=== PATIENT | male | born 1965 | race Two or more races ===

== ENCOUNTER 2017-06-27 05:03 | Emergency (ER) | payer OTHER ==
[2017-06-27 05:15] VITALS: BMI 29.2
[2017-06-27 05:32] LABS: BASO % 1.1 % (0-2.0); EOS % 3.9 % (0-4.5); HEMATOCRIT 39.8 % (35.4-49); HEMOGLOBIN 13.3 GM/dL (11.7-16.9); LYMPH % 36.8 % (8-40); MCH 30.3 pg (25.7-33.7); MCHC 33.5 g/dl (32.0-35.9); MEAN CELL VOLUME 90.4 fl (80-96); MEAN PLT VOLUME 8.8 fl (7.5-11.1); MONO % 10.1 % (3.8-10.2); NEUT % 48.1 % (42.8-82.8); PLATELET COUNT 199 K/MM3 (134-434); RBC 4.41 M/mm3 (4.00-5.60); RDW 13.1 % (11.9-15.9); WHITE BLOOD COUNT 7.3 K/mm3 (4.0-10.0)
--- NOTE | 2017-06-27 05:41 | PDOC ---
History of Present Illness <Wilner Brooks - Last Filed: 06/27/17 06:02> - General History Source: Patient Exam Limitations: No Limitations - History of Present Illness Initial Comments: 06/27/17 07:11 Patient is a 52 year old male with a significant past medical history of gallstones, kidney stones who presents to the ED with complaints of right upper quadrant abdominal pain that began 1 month ago. Patient reports experiencing sudden onset of right upper quadrant pain that began one month ago that increased in intensity this morning at 1am. He reports experiencing intermittent nausea and gas secondary to RUQ pain. Patient reports taking 3 advil this morning at 1am for RUQ pain with no relief. He reports RUQ pain has been a dull chronic pain at baseline but increased in intensity this morning enough to wake him from sleep prompting him to come into the ED for further evaluation. Pt notes the pain seems to be worse when he sits down, improved with standing. No recent heavy lifting or injuries. Denies chest pain, Sob. Denies fevers, chills. Denies nausea, vomiting. Denies contact with sick individuals, out of state traveling. Denies change in appetite , diarrhea, constipation, dysuria, hematuria. Denies any other symptoms. Allergies: None Social history: Current smoker. No alcohol. No illicit drugs. Surgical history: Appendectomy. PMD: Dr. Childs <Len Lopez - Last Filed: 06/27/17 07:12> - General Chief Complaint: Pain, Acute Stated Complaint: PAIN UNDER RIB AREA Time Seen by Provider: 06/27/17 05:14 Past History - Past Medical History COPD: No Other medical history: renal stones - Surgical History Cholecystectomy: Yes - Suicide/Smoking/Psychosocial Hx Smoking History: Current every day smoker Information on smoking cessation initiated: No <Wilner Brooks - Last Filed: 06/27/17 06:02> <Len Lopez - Last Filed: 06/27/17 07:12> - Past Medical History Allergies/Adverse Reactions: Allergies Allergy/AdvReac Type Severity Reaction Status Date / Time No Known Allergies Allergy Verified 01/09/15 17:16 Home Medications: Ambulatory Orders Ibuprofen [Advil -] 800 mg PO TID PRN 06/27/17 Review of Systems - Review of Systems Able to Perform ROS?: Yes Comments:: 06/27/17 07:11 CONSTITUTIONAL: No reported: Fever, Chills, Diaphoresis, Generalized Weakness, Malaise, Loss of Appetite HEENT: No reported: Rhinorrhea, Nasal Congestion, Throat Pain, Throat Swelling, Difficulty Swallowing, Mouth Swelling, Ear Pain, Eye Pain, Visual Changes CARDIOVASCULAR: No reported: Chest Pain, Syncope, Palpitations, Irregular Heart Rate, Lightheadedness, Peripheral Edema RESPIRATORY: No reported: Cough, Shortness of Breath, SOB with Exertion, Orthopnea, Wheezing , Stridor, Hemoptysis GASTROINTESTINAL: +Right upper quadrant pain. +Nausea. No reported: Abdominal Distension, Vomiting, Diarrhea, Constipation, Melena, Hematochezia GENITOURINARY: No reported: Dysuria, Frequency, Urgency, Hesitancy, Flank Pain, Genital Pain MUSCULOSKELETAL: No reported: Myalgia, Arthralgia, Joint Swelling, Back pain, Neck Pain SKIN: No reported: Rash, Itching, Pallor HEMATOLOGIC/IMMUNOLOGIC: No reported: Easy Bleeding, Easy Bruising, Lymphadenopathy, Frequent infections ENDOCRINE: No reported: Unexplained Weight Gain, Unexplained Weight Loss, Heat Intolerance , Cold Intolerance NEUROLOGIC: No reported: Headache, Focal Weakness, Paresthesias, Vertigo, Lightheadedness, Unsteady Gait, Seizure, Mental Status Changes, Incontinence PSYCHIATRIC: No reported: Anxiety, Depression <Len Lopez - Last Filed: 06/27/17 07:12> *Physical Exam - Vital Signs Last Vital Signs Temp Pulse Resp BP Pulse Ox 71 26 H 148/99 99 06/27/17 05:13 06/27/17 05:13 06/27/17 05:13 06/27/17 05:13 <Wilner Brooks - Last Filed: 06/27/17 06:02> - Vital Signs Last Vital Signs Temp Pulse Resp BP Pulse Ox 71 26 H 148/99 99 06/27/17 05:13 06/27/17 05:13 06/27/17 05:13 06/27/17 05:13 - Physical Exam Comments: 06/27/17 07:12 GENERAL: +Obese. The patient is awake, alert, and fully oriented, Nontoxic - in no acute distress. HEAD: Normocephalic, atraumatic. EYES: extraocular movements intact, sclera anicteric, conjunctiva clear. ENT: Normal voice, Moist mucous membranes. NECK: Normal range of motion, No JVD LUNGS: Breath sounds equal, clear to auscultation bilaterally. No wheezes, no rhonchi, no rales. HEART: Regular rate and rhythm, normal S1 and S2 without murmur, rub or gallop. ABDOMEN: +mild RUQ tenderness. no tenderness at mcburneys Soft, normoactive bowel sounds. No guarding, no rebound. No masses. No CVA tenderness EXTREMITIES: Normal range of motion, no edema. No clubbing or cyanosis. No cords , erythema, or tenderness. NEUROLOGICAL: No facial asymmetry, Normal speech, normal gait. PSYCH: Normal mood, normal affect. SKIN: Warm, Dry, normal turgor. <Len Lopez - Last Filed: 06/27/17 07:12> ED Treatment Course - LABORATORY CBC & Chemistry Diagram: 06/27/17 05:23 06/27/17 05:23 - ADDITIONAL ORDERS Additional order review: 06/27/17 05:23 RBC 4.41 MCV 90.4 MCHC 33.5 RDW 13.1 MPV 8.8 Neutrophils % 48.1 Lymphocytes % 36.8 Monocytes % 10.1 Eosinophils % 3.9 Basophils % 1.1 <CeciliaWilner - Last Filed: 06/27/17 06:02> - LABORATORY CBC & Chemistry Diagram: 06/27/17 05:23 06/27/17 05:23 - ADDITIONAL ORDERS Additional order review: Laboratory Results 06/27/17 06/27/17 05:23 05:23 PT with INR 12.10 H INR 1.07 Sodium 140 Potassium 4.0 Chloride 109 H Carbon Dioxide 24 Anion Gap 7 L BUN 18 Creatinine 0.8 Creat Clearance w eGFR > 60 Random Glucose 136 H Calcium 8.3 L Total Bilirubin 0.2 AST 19 ALT 35 Alkaline Phosphatase 52 Total Protein 6.7 Albumin 3.3 L Lipase 120 06/27/17 05:23 RBC 4.41 MCV 90.4 MCHC 33.5 RDW 13.1 MPV 8.8 Neutrophils % 48.1 Lymphocytes % 36.8 Monocytes % 10.1 Eosinophils % 3.9 Basophils % 1.1 - Medications Given in the ED: ED Medications Discontinued Medications Generic Name Dose Route Start Last Admin Trade Name Freq PRN Reason Stop Dose Admin Al Hydroxide/Mg Hydroxide 30 ml 06/27/17 06:03 06/27/17 06:16 Mylanta Suspension - PO 06/27/17 06:04 30 ml ONCE ONE Administration Famotidine/Sodium Chloride 20 50 mls @ 100 mls/hr 06/27/17 06:03 06/27/17 06: 15 mg/ Miscellaneous IVPB 06/27/17 06:32 100 mls/hr ONCE ONE Administration Ketorolac Tromethamine 30 mg 06/27/17 06:01 06/27/17 06:15 Toradol Injection - IVPUSH 06/27/17 06:02 30 mg ONCE ONE Administration <Len Lopez - Last Filed: 06/27/17 07:12> Medical Decision Making - Medical Decision Making 06/27/17 05:39 52y M with no pmhx presents with RUQ pain for 1 month, worsened tonight 9/10, sharp, nonradiating, worse with sitting/laying down, better with standing. + nausea, +passing gas, Took advil with mild improvement, but pain recurred later. no assocated f/c, cp, worsening on exertion, numbness/tingling/weakness, vomiting, not worse with food intake hx of gallstones/kidney stones, gastitis, msk, will give tolradol, pepcid/maalox will obtain GB US <Wilner Brooks - Last Filed: 06/27/17 06:02> *DC/Admit/Observation/Transfer - Attestations Scribe Attestion: 06/27/17 07:12 Documentation prepared by Len Lopez, acting as medical office coordinator for Wilner Brooks MD, /DO. <Len Lopez - Last Filed: 06/27/17 07:12>
[2017-06-27 05:43] LABS: INR 1.07 (0.82-1.09); PROTHROMBIN TIME (PATIENT) 12.1 SEC (9.98-11.88)
[2017-06-27 05:54] LABS: ALBUMIN 3.3 g/dl (3.4-5.0); ALK PHOS 52 U/L (45-117); ANION GAP 7 (8-16); BILIRUBIN,TOTAL 0.2 mg/dL (0.2-1.0); BLOOD UREA NITROGEN 18 mg/dL (7-18); CALCIUM 8.3 mg/dL (8.5-10.1); CHLORIDE 109 mmol/L (98-107); CO2 24 mmol/L (21-32); CREATININE 0.8 mg/dL (0.7-1.3); GLUCOSE,RANDOM 136 mg/dL (74-106); LIPASE 120 U/L (73-393); SGOT/AST 19 U/L (15-37); SGPT/ALT 35 U/L (12-78); SODIUM 140 mmol/L (136-145); TOT PROT 6.7 g/dl (6.4-8.2)
[2017-06-27] MEDS ORDERED: KETOROLAC TROMETHAMINE 30 MG/1 ML VIAL IVPUSH ONE (06:01)
[2017-06-27] MEDS ORDERED: MAG HYDROX/AL HYDROX/SIMETH 355 ML ORAL.SUSP PO ONE (06:03)
[2017-06-27] MEDS ORDERED: FAMOTIDINE 20 MG/50 ML IVPB 20 MG in PREMIX 50 IVPB ONE (06:03)
[2017-06-27] MEDS ORDERED: KETOROLAC TROMETHAMINE 30 MG/1 ML VIAL ONE (06:11)
[2017-06-27] MEDS ORDERED: FAMOTIDINE 20 MG/50 ML IVPB 20 MG/50 ML MG IVPB ONE (06:11)
[2017-06-27 09:33] LABS: URINE APPEARANCE CLEAR; URINE BILIRUBIN NEGATIVE (NEGATIVE); URINE BLOOD NEGATIVE (NEGATIVE); URINE COLOR YELLOW; URINE GLUCOSE (UA) NEGATIVE (NEGATIVE); URINE KETONE NEGATIVE (NEGATIVE); URINE LEUK ESTERASE NEGATIVE (NEGATIVE); URINE NITRITE NEGATIVE (NEGATIVE); URINE UROBILINOGEN NEGATIVE mg/dL (0.2-1.0)
[2017-06-27 09:35] LABS: URINE PROTEIN 1+ (NEGATIVE)
[2017-06-27 10:10] LABS: URINE HYALINE CAST 1 /lpf; URINE MUCUS MANY
--- NOTE | 2017-06-27 11:46 | CONSULT ---
Consult Consult Specialty:: general surgery Referred by:: rianna - ED Reason for Consultation:: biliary colic - History of Present Illness Chief Complaint: RUQ pain History of Present Illness: 52yo male no significant PMH presented with right upper abdominal pain. Pain is focal to right upper quadrant pain, sudden in onset at 1 am. he has been having intermittent dull achy pains that began one month ago. He reports experiencing intermittent nausea and gas secondary to RUQ pain. Patient reports taking 3 advil this morning at 1am for RUQ pain with no relief. He reports RUQ pain has been a dull chronic pain at baseline but increased in intensity this morning enough to wake him from sleep prompting him to come into the ED for further evaluation. He has had had previous episodes of biliary colic and maybe pancreatitis. The pain started after a meal of fried pork skin and rice. He diet is high in saturated fat. He denies fever and chills. he has not been jaundiced. Previous abdominal surgery was an appendectomy a few years ago at [facility], [place]. - History Source History Provided By: Patient Limitations to Obtaining History: No Limitations - Past Medical History Renal/: Yes: Renal Calculi - Past Surgical History Past Surgical History: Yes: Appendectomy - Alcohol/Substance Use Hx Alcohol Use: Yes (socially ) - Smoking History Smoking history: Current every day smoker - Social History ADL: Independent History of Recent Travel: No Home Medications - Allergies Allergies/Adverse Reactions: Allergies Allergy/AdvReac Type Severity Reaction Status Date / Time No Known Allergies Allergy Verified 01/09/15 17:16 - Home Medications Home Medications: Ambulatory Orders Naproxen 500 mg PO BID PRN #10 tablet 06/27/17 Review of Systems - Review of Systems Constitutional: denies: Chills, Fever Eyes: denies: Blurred Vision, Recent Change in Vision HENT: denies: Difficult Swallowing, Throat Pain Neck: denies: Pain on Movement, Swollen Glands Cardiovascular: denies: Chest Pain, Palpitations Respiratory: denies: Cough, SOB, SOB on Exertion Gastrointestinal: denies: Abdominal Pain, Constipation, Diarrhea Genitourinary: reports: Flank Pain. denies: Discharge, Dysuria Musculoskeletal: denies: Back Pain, Joint Swelling Integumentary: denies: Lesions, Rash Neurological: denies: Syncope, Tremors Endocrine: denies: Unexplained Weight Gain, Unexplained Weight Loss Hematology/Lymphatic: denies: Easily Bruised, Excessive Bleeding Psychiatric: denies: Anxiety, Depression Physical Exam Vital Signs: Vital Signs Temperature 98 F 06/27/17 07:58 Pulse Rate 60 06/27/17 07:58 Respiratory Rate 18 06/27/17 07:58 Blood Pressure 114/62 06/27/17 07:58 O2 Sat by Pulse Oximetry (%) 99 06/27/17 07:58 Vital Signs Period Temp Pulse Resp BP Sys/Coughlin Pulse Ox Last 24 Hr 98 F 60-71 18-26 114-148/62-99 99-99 Constitutional: Yes: Well Nourished, No Distress, Calm Eyes: Yes: Conjunctiva Clear, EOM Intact HENT: Yes: Atraumatic, Normocephalic Neck: Yes: Supple, Trachea Midline Cardiovascular: Yes: Regular Rate and Rhythm, S1, S2. No: Murmur Respiratory: Yes: Regular, CTA Bilaterally Gastrointestinal: Yes: Normal Bowel Sounds, Soft, Tenderness (murphys sign negative, mild discomfort on deep paplation, no rebound or guarding). No: Hepatomegaly, Tenderness, Rebound, Vomiting Renal/: No: CVA Tenderness - Left, CVA Tenderness - Right Extremities: No: Cool, Cyanosis Edema: No Wound/Incision: Yes: Clean/Dry, Well Approximated Neurological: Yes: Alert, Oriented Psychiatric: Yes: Alert, Oriented Labs: CBC,CMP WBC 7.3 K/mm3 (4.0-10.0) 06/27/17 05:23 RBC 4.41 M/mm3 (4.00-5.60) 06/27/17 05:23 Hgb 13.3 GM/dL (11.7-16.9) 06/27/17 05:23 Hct 39.8 % (35.4-49) 06/27/17 05:23 MCV 90.4 fl (80-96) 06/27/17 05:23 MCH 30.3 pg (25.7-33.7) 06/27/17 05:23 MCHC 33.5 g/dl (32.0-35.9) 06/27/17 05:23 RDW 13.1 % (11.9-15.9) 06/27/17 05:23 Plt Count 199 K/MM3 (134-434) 06/27/17 05:23 MPV 8.8 fl (7.5-11.1) 06/27/17 05:23 Neutrophils % 48.1 % (42.8-82.8) 06/27/17 05:23 Lymphocytes % 36.8 % (8-40) 06/27/17 05:23 Monocytes % 10.1 % (3.8-10.2) 06/27/17 05:23 Eosinophils % 3.9 % (0-4.5) 06/27/17 05:23 Basophils % 1.1 % (0-2.0) 06/27/17 05:23 Sodium 140 mmol/L (136-145) 06/27/17 05:23 Potassium 4.0 mmol/L (3.5-5.1) 06/27/17 05:23 Chloride 109 mmol/L (98-107) H 06/27/17 05:23 Carbon Dioxide 24 mmol/L (21-32) 06/27/17 05:23 Anion Gap 7 (8-16) L 06/27/17 05:23 BUN 18 mg/dL (7-18) 06/27/17 05:23 Creatinine 0.8 mg/dL (0.7-1.3) 06/27/17 05:23 Creat Clearance w eGFR > 60 (>60) 06/27/17 05:23 Random Glucose 136 mg/dL (74-106) H 06/27/17 05:23 Calcium 8.3 mg/dL (8.5-10.1) L 06/27/17 05:23 Total Bilirubin 0.2 mg/dL (0.2-1.0) 06/27/17 05:23 AST 19 U/L (15-37) 06/27/17 05:23 ALT 35 U/L (12-78) 06/27/17 05:23 Alkaline Phosphatase 52 U/L (45-117) 06/27/17 05:23 Total Protein 6.7 g/dl (6.4-8.2) 06/27/17 05:23 Albumin 3.3 g/dl (3.4-5.0) L 06/27/17 05:23 Lipase 120 U/L (73-393) 06/27/17 05:23 Imaging - Results Ultrasound: Report Reviewed, Image Reviewed (equivocal for cholecystitis, no stones, no thickening no CBD dilation) Problem List - Problems (1) Sludge in gallbladder Assessment/Plan: 52 yo female PMH nephrolitiasis, biliary colic s/p laparoscopic appendectomy presents with an acute attack of colic with GB slidge after a meal of fried pork. IVF hydration Adequate analgesia Counseled to refrain from consuming fatty foods until clinic follow-up appointment Encourged to return if pain returns or worsens Thank you for the opportunity to participate in the care of this patient. Code(s): K82.8 - OTHER SPECIFIED DISEASES OF GALLBLADDER (2) Biliary colic symptom Code(s): K80.50 - CALCULUS OF BILE DUCT W/O CHOLANGITIS OR CHOLECYST W/O OBST (3) Renal calculi Code(s): N20.0 - CALCULUS OF KIDNEY (4) Abdominal pain, right lower quadrant Code(s): R10.31 - RIGHT LOWER QUADRANT PAIN
--- NOTE | 2017-06-27 11:55 | PDOC ---
*Physical Exam - Vital Signs Last Vital Signs Temp Pulse Resp BP Pulse Ox 98 F 60 18 114/62 99 06/27/17 07:58 06/27/17 07:58 06/27/17 07:58 06/27/17 07:58 06/27/17 07:58 <Tara Doss - Last Filed: 06/27/17 11:57> - Vital Signs Last Vital Signs Temp Pulse Resp BP Pulse Ox 98 F 60 18 114/62 99 06/27/17 07:58 06/27/17 07:58 06/27/17 07:58 06/27/17 07:58 06/27/17 07:58 <Migdalia Vizcarra - Last Filed: 06/27/17 12:36> ED Treatment Course - LABORATORY CBC & Chemistry Diagram: 06/27/17 05:23 06/27/17 05:23 - ADDITIONAL ORDERS Additional order review: Laboratory Results 06/27/17 06/27/17 06/27/17 08:58 05:23 05:23 PT with INR 12.10 H INR 1.07 Sodium 140 Potassium 4.0 Chloride 109 H Carbon Dioxide 24 Anion Gap 7 L BUN 18 Creatinine 0.8 Creat Clearance w eGFR > 60 Random Glucose 136 H Calcium 8.3 L Total Bilirubin 0.2 AST 19 ALT 35 Alkaline Phosphatase 52 Total Protein 6.7 Albumin 3.3 L Lipase 120 Urine Color Yellow Urine Appearance Clear Urine pH 5.0 Ur Specific [place] 1.036 H Urine Protein 1+ H Urine Glucose (UA) Negative Urine Ketones Negative Urine Blood Negative Urine Nitrite Negative Urine Bilirubin Negative Urine Urobilinogen Negative Ur Leukocyte Esterase Negative Urine WBC (Auto) <1 Urine RBC (Auto) <1 Hyaline Casts 1 Urine Mucus Many 06/27/17 05:23 RBC 4.41 MCV 90.4 MCHC 33.5 RDW 13.1 MPV 8.8 Neutrophils % 48.1 Lymphocytes % 36.8 Monocytes % 10.1 Eosinophils % 3.9 Basophils % 1.1 - RADIOLOGY Radiograph Interpretation: EXAM#: TYPE/EXAM: RESULT: [id number] US/GALLBLADDER US Indication: Right upper quadrant pain. Technique: Real-time grayscale and color Doppler sonogram of the right upper quadrant performed by the technologist. Images are submitted for review. Comparison: None available. Findings: Technologist reports the patient was unable to maintain breath-hold, somewhat limiting evaluation. The liver measures 15.5 cm in length. Hepatic parenchyma is diffusely hyperechoic, consistent with steatosis. Please note that echogenic hepatic parenchyma decreases sonographic sensitivity in detecting hepatic mass lesions. The gallbladder is not hydropic. There is sludge layering dependently in the gallbladder with no evidence of cholelithiasis or pericholecystic fluid. The gallbladder wall is mildly prominent, measuring 4 mm in thickness. The technologist reports a positive sonographic Guaman's sign. There is no evidence of intrahepatic or extrahepatic biliary ductal dilatation. The proximal common bile duct measures 5 mm in diameter. Distally, the common bile duct is obscured by bowel gas. The pancreas is not well visualized, and cannot be adequately assessed. The right kidney is normal in size measuring 10.6 cm in length with normal cortical echotexture and no hydronephrosis. No free fluid identified in the right upper quadrant of the abdomen. The portal vein is patent, where imaged. The aorta and IVC are not well visualized. Impression: Gallbladder sludge with no evidence of cholelithiasis. Very mild gallbladder wall thickening and positive sonographic Guaman's sign. The sonogram is equivocal for acute cholecystitis, requiring clinical correlation. Gallbladder wall thickening is nonspecific with a broad differential including cholecystitis ( acute versus chronic), right upper quadrant inflammatory processes, amongst others. Hepatic steatosis. Reported By: Pili Arechiga DO 06/27/17 1112 - Medications Given in the ED: ED Medications Discontinued Medications Generic Name Dose Route Start Last Admin Trade Name Freq PRN Reason Stop Dose Admin Al Hydroxide/Mg Hydroxide 30 ml 06/27/17 06:03 06/27/17 06:16 Mylanta Suspension - PO 06/27/17 06:04 30 ml ONCE ONE Administration Famotidine/Sodium Chloride 20 50 mls @ 100 mls/hr 06/27/17 06:03 06/27/17 06: 15 mg/ Miscellaneous IVPB 06/27/17 06:32 100 mls/hr ONCE ONE Administration Ketorolac Tromethamine 30 mg 06/27/17 06:01 06/27/17 06:15 Toradol Injection - IVPUSH 06/27/17 06:02 30 mg ONCE ONE Administration <Tara Doss - Last Filed: 06/27/17 11:57> - LABORATORY CBC & Chemistry Diagram: 06/27/17 05:23 06/27/17 05:23 - ADDITIONAL ORDERS Additional order review: Laboratory Results 06/27/17 06/27/17 06/27/17 08:58 05:23 05:23 PT with INR 12.10 H INR 1.07 Sodium 140 Potassium 4.0 Chloride 109 H Carbon Dioxide 24 Anion Gap 7 L BUN 18 Creatinine 0.8 Creat Clearance w eGFR > 60 Random Glucose 136 H Calcium 8.3 L Total Bilirubin 0.2 AST 19 ALT 35 Alkaline Phosphatase 52 Total Protein 6.7 Albumin 3.3 L Lipase 120 Urine Color Yellow Urine Appearance Clear Urine pH 5.0 Ur Specific [place] 1.036 H Urine Protein 1+ H Urine Glucose (UA) Negative Urine Ketones Negative Urine Blood Negative Urine Nitrite Negative Urine Bilirubin Negative Urine Urobilinogen Negative Ur Leukocyte Esterase Negative Urine WBC (Auto) <1 Urine RBC (Auto) <1 Hyaline Casts 1 Urine Mucus Many 06/27/17 05:23 RBC 4.41 MCV 90.4 MCHC 33.5 RDW 13.1 MPV 8.8 Neutrophils % 48.1 Lymphocytes % 36.8 Monocytes % 10.1 Eosinophils % 3.9 Basophils % 1.1 - Medications Given in the ED: ED Medications Discontinued Medications Generic Name Dose Route Start Last Admin Trade Name Freq PRN Reason Stop Dose Admin Al Hydroxide/Mg Hydroxide 30 ml 06/27/17 06:03 06/27/17 06:16 Mylanta Suspension - PO 06/27/17 06:04 30 ml ONCE ONE Administration Famotidine/Sodium Chloride 20 50 mls @ 100 mls/hr 06/27/17 06:03 06/27/17 06: 15 mg/ Miscellaneous IVPB 06/27/17 06:32 100 mls/hr ONCE ONE Administration Ketorolac Tromethamine 30 mg 06/27/17 06:01 06/27/17 06:15 Toradol Injection - IVPUSH 06/27/17 06:02 30 mg ONCE ONE Administration <Migdalia Vizcarra - Last Filed: 06/27/17 12:36> Medical Decision Making - Medical Decision Making 06/27/17 11:56 - The radiologist in-house was called and a request for read of this patient's ultrasound was placed at @ 8:50. - The ultrasound was read and reported at 11:12 - [facility] surgical group was paged via answering service requesting a calll back for consult at 11:34. I have been informed Dr. Fields is on-call this morning. - Dr. Fields returned the call at 11:36 and the patient's case was discussed. 06/27/17 11:58 Documentation prepared by Tara Doss, acting as medical record assistant for Migdalia Vizcarra MD <Tara Doss - Last Filed: 06/27/17 11:57> - Medical Decision Making 06/27/17 12:26 Ultrasound equivocal for acute cholecystitis given mild wall thickening and positive sonographic Guaman sign. Patient evaluated by Dr. Fields, who has cleared the pt for DC as he has a normal abd exam. Likely biliary colic. At this time, on my exam, the patient does not have any abdominal tenderness to palpation, Guaman sign is negative. Vitals are within normal limits. Patient will follow-up with Dr. Fields as an outpatient or return to emergency department if he has any recurrent right upper quadrant abdominal pain. Should he return for recurrent pain, he would likely require a cholecystectomy for recurrent biliary colic. I discussed the physical exam findings, ancillary test results and final diagnoses with the patient. I answered all of the patient's questions. The patient was satisfied with the care received and felt comfortable with the discharge plan and treatment plan. The patient will call their primary care physician within 24 hours to arrange follow-up and will return to the Emergency Department with any new, persistent or worsening symptoms. <Migdalia Vizcarra - Last Filed: 06/27/17 12:36> *DC/Admit/Observation/Transfer <Tara Doss - Last Filed: 06/27/17 11:57> - Discharge Dispostion Admit: No - Attestations Physician Attestion: 06/27/17 12:36 I, Dr. Migdalia Vizcarra MD, attest that this document has been prepared under my direction and personally reviewed by me in its entirety. I further attest, that it accurately reflects all work, treatment, procedures and medical decision -making performed by me. <Migdalia Vizcarra - Last Filed: 06/27/17 12:36> Diagnosis at time of Disposition: Biliary colic symptom - Discharge Dispostion Disposition: HOME Condition at time of disposition: Stable - Referrals Referrals: Ranjan Fields MD [Staff Physician] - - Patient Instructions Printed Discharge Instructions: DI for Biliary Colic Additional Instructions: Follow-up with Dr. Fields within 1 week. Return to the emergency department if you have recurrent pain, or any new, worsening or concerning symptoms.
[2017-06-27 12:58] VITALS: BP 115/71; PULSE 75; TEMP 98.2
== END 2017-06-27 13:00 | disposition home or self-care (01) ==
LOC: JER 05:03
PROC: 3E033GC Introduction of Other Therapeutic Substance into Peripheral Vein, Percutaneous Approach (ICD-10-PCS; principal; 2017-06-27)
PROC: 3E0333Z Introduction of Anti-inflammatory into Peripheral Vein, Percutaneous Approach (ICD-10-PCS; 2017-06-27)
DX: K82.8 Other specified diseases of gallbladder (principal); K80.50 Calculus of bile duct without cholangitis or cholecystitis without obstruction; N20.0 Calculus of kidney
CPT/HCPCS: 36415; 76705-TC; 80053; 81003; 81015; 83690; 85025; 85610; 96365; 96375; 99284-25